=== PATIENT | female | born 2000 | race African-American/Black ===

== ENCOUNTER 2022-11-27 15:20 | Emergency (ER) | payer MEDICAID ==
[~2022-11-27] VITALS: Ht 167.6 cm; Wt 54.0 kg
[2022-11-27 15:22] VITALS: BP 123/90
== END 2022-11-27 16:45 | disposition home or self-care (01) ==
LOC: ER 15:20
DX: F10.129 Alcohol abuse with intoxication, unspecified (principal); Y90.9 Presence of alcohol in blood, level not specified; Z63.4 Disappearance and death of family member; Z71.41 Alcohol abuse counseling and surveillance of alcoholic; R03.0 Elevated blood-pressure reading, without diagnosis of hypertension
CPT/HCPCS: 99283

== ENCOUNTER 2023-09-25 21:04 | Emergency (ER) | payer MEDICAID ==
[~2023-09-25] VITALS: Ht 160 cm; Wt 60.0 kg
[2023-09-25 21:12] VITALS: BP 128/93; PULSE 91; RESP 14; TEMP 97.4; O2SAT 97
[2023-09-25] MEDS ORDERED: ONDANSETRON 4MG ODT PO STA (21:15)
[2023-09-25 22:08] LABS: BASOPHILS % 0.7 % (0.0-2.0); DIFFERENTIAL COMMENT 0; EOSINOPHILS % 0.5 % (0.0-5.0); HEMOGLOBIN. 10.7 g/dL (12.0-16.0); LYMPHOCYTES % 65.2 % (20.0-50.0); MEAN CORPUSCULAR HGB CONC 33.4 g/dL (31.0-37.0); MEAN CORPUSCULAR VOLUME 101.7 fL (81.0-99.0); MEAN PLATELET VOLUME 7.6 fl (7.4-10.4); MONOCYTES % 6.4 % (2.0-8.0); NEUTROPHILS % 27.2 % (40.0-76.0); PLATELET 241 x1000/uL (130-400); RED BLOOD CELL COUNT 3.15 mill/uL (4.2-5.4); RED CELL DISTRIBUTION WIDTH 13.3 % (11.6-14.6); WHITE BLOOD COUNT 5.9 x1000/uL (4.5-11.0)
[2023-09-25 22:32] LABS: ACETAMINOPHEN < 2 ug/mL (10-30); ALANINE AMINOTRANSFERASE 101 IU/L (10-49); ALBUMIN 3.4 g/dL (3.2-4.8); ASPARTATE AMINOTRANSFERASE 153 IU/L (<34); BILIRUBIN TOTAL 0.3 mg/dL (0.1-1.0); CALCIUM 8.4 mg/dL (8.7-10.4); CARBON DIOXIDE 31 mEq/L (21-32); CHLORIDE 107 mEq/L (98-107); CREATININE 0.6 mg/dL (0.6-1.0); ETHANOL BLOOD 354 mg/dL (<10); GLUCOSE 82 mg/dL (70-105); PROTEIN TOTAL 6.3 g/dL (6.0-8.3); SODIUM 145 mEq/L (136-145); THYROID STIMULATING HORMONE 2.02 uIU/mL (0.55-4.78); UREA NITROGEN BLOOD 6 mg/dL (9-23)
[2023-09-25] MEDS ORDERED: POTASSIUM CHLORIDE 20MEQ TABLET SR PO NR (23:00)
== END 2023-09-25 23:30 | disposition home or self-care (01) ==
LOC: ER 21:04
DX: R11.2 Nausea with vomiting, unspecified (principal); F10.129 Alcohol abuse with intoxication, unspecified; Y90.8 Blood alcohol level of 240 mg/100 ml or more
CPT/HCPCS: 80053; 80307; 80329; 80320; 84443; 85025; 36415; 99283; Q0162; G0480

== ENCOUNTER 2023-11-03 14:34 | Emergency (ER) | payer MEDICAID ==
[~2023-11-03] VITALS: Ht 167.6 cm; Wt 70.0 kg
[2023-11-03 14:39] VITALS: O2SAT 97
[2023-11-03] MEDS ORDERED: LIDOCAINE HCL/EPINEPHRINE 1%-EPI 1:100,000 20 ML VIAL INFIL ONE (15:30)
[2023-11-03] MEDS ORDERED: TETANUS, DIPHTHERIA, PERTUSSIS VAC/PF 0.5ML (>10YR OLD) IM ONE (15:30)
[2023-11-03] MEDS ORDERED: LEVETIRACETAM 500MG/5ML CUP PO ONE (15:30)
[2023-11-03 15:38] LABS: BASOPHILS % 0.3 % (0.0-2.0); DIFFERENTIAL COMMENT 0; HEMATOCRIT. 38.6 % (36.0-48.0); HEMOGLOBIN. 12.9 g/dL (12.0-16.0); LYMPHOCYTES % 55.1 % (20.0-50.0); MEAN CORPUSCULAR HEMOGLOBIN 34.2 pg (28.0-32.0); MEAN CORPUSCULAR HGB CONC 33.5 g/dL (31.0-37.0); MEAN CORPUSCULAR VOLUME 102.2 fL (81.0-99.0); MEAN PLATELET VOLUME 6.7 fl (7.4-10.4); MONOCYTES % 3.2 % (2.0-8.0); NEUTROPHILS % 41.4 % (40.0-76.0); PLATELET 258 x1000/uL (130-400); RED BLOOD CELL COUNT 3.78 mill/uL (4.2-5.4); RED CELL DISTRIBUTION WIDTH 12.7 % (11.6-14.6); WHITE BLOOD COUNT 8.2 x1000/uL (4.5-11.0)
[2023-11-03 15:52] LABS: ALANINE AMINOTRANSFERASE 20 IU/L (10-49); ALBUMIN 4.4 g/dL (3.2-4.8); ASPARTATE AMINOTRANSFERASE 50 IU/L (<34); BILIRUBIN TOTAL 0.4 mg/dL (0.1-1.0); CALCIUM 8.8 mg/dL (8.7-10.4); CARBON DIOXIDE 25 mEq/L (21-32); CHLORIDE 104 mEq/L (98-107); CREATININE 0.5 mg/dL (0.6-1.0); GLUCOSE 89 mg/dL (70-105); POTASSIUM 3.4 mEq/L (3.5-5.1); SODIUM 143 mEq/L (136-145); UREA NITROGEN BLOOD 6 mg/dL (9-23)
[2023-11-03 15:56] LABS: HCG SCREEN NEGATIVE
[2023-11-03] MEDS ORDERED: KEPP500 MT (17:40)
[2023-11-03 19:00] VITALS: BP 111/68; PULSE 98; RESP 16; TEMP 97.9
== END 2023-11-03 19:40 | disposition home or self-care (01) ==
LOC: ER 14:34
DX: S01.511A Laceration without foreign body of lip, initial encounter (principal); R56.9 Unspecified convulsions; F32.9 Major depressive disorder, single episode, unspecified; F10.229 Alcohol dependence with intoxication, unspecified; X58.XXXA Exposure to other specified factors, initial encounter; Y93.89 Activity, other specified; Y92.89 Other specified places as the place of occurrence of the external cause; Y99.8 Other external cause status
CPT/HCPCS: 80053; 84703; 85025; 36415; 90715; 93005; 90471; 99284; J3490; Z7610

== ENCOUNTER 2023-11-10 13:21 | Emergency (ER) | payer MEDICAID ==
[~2023-11-10] VITALS: Ht 162.6 cm; Wt 69.0 kg
[~2023-11-10 13:21] MED LIST: KEPP500 MT
[2023-11-10 13:27] VITALS: BP 138/95; PULSE 103; RESP 16; TEMP 98.1; O2SAT 95
[2023-11-10] MEDS ORDERED: LEVETIRACETAM 500MG PREMIX 100 ML IV ONE (14:30)
== END 2023-11-10 14:58 | disposition left against medical advice (07) ==
LOC: ER 14:53
DX: R56.9 Unspecified convulsions (principal); F32.A Depression, unspecified; I10 Essential (primary) hypertension; F10.20 Alcohol dependence, uncomplicated; Y90.9 Presence of alcohol in blood, level not specified
CPT/HCPCS: 99283

== ENCOUNTER 2024-04-06 02:37 | Emergency (ER) | payer MEDICAID ==
[~2024-04-06] VITALS: Ht 180.3 cm; Wt 65.0 kg
[~2024-04-06 02:37] MED LIST changes: +CHLO5CAP3 MT; +FOLI-43 MT; +MULT-230 MT; +THIA100T72 PO
[2024-04-06] MEDS ORDERED: ONDANSETRON HCL 4MG/2ML INJ IV STA (02:46)
[2024-04-06] MEDS ORDERED: MAGNESIUM/ALUMINUM HYDROXIDE/SIMETHICONE 30ML UDC PO STA (02:46)
[2024-04-06] MEDS ORDERED: PANTOPRAZOLE SODIUM 40 MG/VIAL IV STA (02:46)
[2024-04-06 02:54] VITALS: BP 118/88; PULSE 100; RESP 19; TEMP 98.4; O2SAT 99
[2024-04-06] MEDS ORDERED: SODIUM CHLORIDE 0.9% 1,000 ML IV ONE (03:00)
[2024-04-06 03:11] LABS: BASOPHILS % 1.4 % (0.0-2.0); DIFFERENTIAL COMMENT 0; EOSINOPHILS % 0.2 % (0.0-5.0); HEMATOCRIT. 41.4 % (36.0-48.0); HEMOGLOBIN. 13.9 g/dL (12.0-16.0); LYMPHOCYTES % 55.7 % (20.0-50.0); MEAN CORPUSCULAR HEMOGLOBIN 34.1 pg (28.0-32.0); MEAN CORPUSCULAR HGB CONC 33.6 g/dL (31.0-37.0); MEAN CORPUSCULAR VOLUME 101.4 fL (81.0-99.0); MEAN PLATELET VOLUME 9.4 fl (7.4-10.4); NEUTROPHILS % 33.7 % (40.0-76.0); PLATELET 135 x1000/uL (130-400); RED BLOOD CELL COUNT 4.08 mill/uL (4.2-5.4); RED CELL DISTRIBUTION WIDTH 14.3 % (11.6-14.6); WHITE BLOOD COUNT 5.7 x1000/uL (4.5-11.0)
[2024-04-06 03:15] LABS: CARBON DIOXIDE 28 mEq/L (21-32); CHLORIDE 98 mEq/L (98-107); POTASSIUM 3.1 mEq/L (3.5-5.1); SODIUM 139 mEq/L (136-145)
[2024-04-06 03:16] LABS: CALCIUM 8.9 mg/dL (8.7-10.4)
[2024-04-06 03:20] LABS: CREATININE 0.8 mg/dL (0.6-1.0)
[2024-04-06 03:21] LABS: ETHANOL BLOOD 249 mg/dL (<10); GLUCOSE 97 mg/dL (70-105); UREA NITROGEN BLOOD 7 mg/dL (9-23)
[2024-04-06 03:22] LABS: ALANINE AMINOTRANSFERASE 130 IU/L (10-49); ALBUMIN 3.9 g/dL (3.2-4.8); ASPARTATE AMINOTRANSFERASE 441 IU/L (<34)
[2024-04-06 03:23] LABS: BILIRUBIN DIRECT 1.1 mg/dL (<=3.0); BILIRUBIN TOTAL 1.8 mg/dL (0.1-1.0); PROTEIN TOTAL 7.5 g/dL (6.0-8.3)
[2024-04-06] MEDS ORDERED: MAGNESIUM/ALUMINUM HYDROXIDE/SIMETHICONE 30ML UDC PO NR (03:30)
[2024-04-06] MEDS ORDERED: ONDANSETRON HCL 4MG/2ML INJ IV NR (03:30)
[2024-04-06 03:43] LABS: HCG SCREEN NEGATIVE
[2024-04-06 03:44] LABS: INR 1.2; PROTHROMBIN TIME 12.8 sec (9.6-11.0)
[2024-04-06 03:58] LABS: LACTIC ACID 3.9 mmol/L (0.4-2.0); TROPONIN I HIGH SENSITIVITY < 4 ng/L (3.0-34)
== END 2024-04-06 05:50 | disposition left against medical advice (07) ==
LOC: ER 02:37
DX: F10.229 Alcohol dependence with intoxication, unspecified (principal); F17.200 Nicotine dependence, unspecified, uncomplicated; I10 Essential (primary) hypertension; Z00.00 Encounter for general adult medical examination without abnormal findings; Z86.59 Personal history of other mental and behavioral disorders; Y90.8 Blood alcohol level of 240 mg/100 ml or more
CPT/HCPCS: 36415; 80048; 80076; 80320; 83605; 84484; 84703; 85025; 99283; G0480

== ENCOUNTER 2024-04-08 16:57 | Inpatient (IN) | payer MEDICAID ==
[~2024-04-08] VITALS: Ht 167.6 cm; Wt 61.2 kg
[2024-04-08 16:59] VITALS: O2SAT 99
[2024-04-08] MEDS: LEVETIRACETAM 1000MG PREMIX 100 ML IV ONE (17:29)
[2024-04-08 17:43] LABS: BASOPHILS % 0.6 % (0.0-2.0); DIFFERENTIAL COMMENT 0; EOSINOPHILS % 0.1 % (0.0-5.0); HEMATOCRIT. 41.3 % (36.0-48.0); HEMOGLOBIN. 13.7 g/dL (12.0-16.0); LYMPHOCYTES % 41.4 % (20.0-50.0); MEAN CORPUSCULAR HEMOGLOBIN 33.5 pg (28.0-32.0); MEAN CORPUSCULAR HGB CONC 33.2 g/dL (31.0-37.0); MEAN PLATELET VOLUME 10.5 fl (7.4-10.4); MONOCYTES % 8.6 % (2.0-8.0); NEUTROPHILS % 49.3 % (40.0-76.0); PLATELET 101 x1000/uL (130-400); RED BLOOD CELL COUNT 4.09 mill/uL (4.2-5.4); RED CELL DISTRIBUTION WIDTH 14.3 % (11.6-14.6); WHITE BLOOD COUNT 5.2 x1000/uL (4.5-11.0)
[2024-04-08 17:51] LABS: CARBON DIOXIDE 34 mEq/L (21-32); CHLORIDE 86 mEq/L (98-107); SODIUM 132 mEq/L (136-145)
[2024-04-08 17:52] LABS: CALCIUM 9.2 mg/dL (8.7-10.4)
[2024-04-08] MEDS: CHLORDIAZEPOXIDE 25MG CAPSULE PO ONE (17:53)
[2024-04-08 17:55] LABS: HCG SCREEN NEGATIVE
[2024-04-08 17:57] LABS: ETHANOL BLOOD 30 mg/dL (<10); GLUCOSE 91 mg/dL (70-105); UREA NITROGEN BLOOD 9 mg/dL (9-23)
[2024-04-08 17:58] LABS: ALANINE AMINOTRANSFERASE 91 IU/L (10-49); ALBUMIN 3.7 g/dL (3.2-4.8); ASPARTATE AMINOTRANSFERASE 219 IU/L (<34)
[2024-04-08 17:59] LABS: BILIRUBIN DIRECT 1.3 mg/dL (<=3.0); BILIRUBIN TOTAL 1.8 mg/dL (0.1-1.0); PHOSPHORUS 2.2 mg/dL (2.5-4.9); PROTEIN TOTAL 7.1 g/dL (6.0-8.3)
[2024-04-08 18:02] LABS: POTASSIUM 2.7 mEq/L (3.5-5.1)
[2024-04-08 18:03] LABS: CREATININE 1.4 mg/dL (0.6-1.0)
[2024-04-08] MEDS: MAGNESIUM 2 G PREMIX 50 ML IV ONE (18:23)
[2024-04-08] MEDS: SODIUM CHLORIDE 0.9% 1,000 ML IV ONE (18:23)
[2024-04-08] MEDS: KCL 10MEQ/50ML PREMIX 50 ML IV SCH (18:37)
[2024-04-08] MEDS ORDERED: ACETAMINOPHEN 325MG TABLET PO PRN ×2 (19:15)
[2024-04-08] MEDS ORDERED: CLONIDINE 0.1MG TABLET PO PRN (19:15)
[2024-04-08] MEDS ORDERED: IPRATROPIUM/ALBUTEROL 0.5-3(2.5)MG/3ML NEB HHN PRN (19:15)
[2024-04-08] MEDS ORDERED: MAGNESIUM/ALUMINUM HYDROXIDE/SIMETHICONE 30ML UDC PO PRN (19:15)
[2024-04-08] MEDS ORDERED: LORAZEPAM 2MG/ML INJ IV PRN ×2 (19:15→19:30)
[2024-04-08] MEDS ORDERED: GUAIFENESIN 200MG/10ML SUGAR FREE UDC PO PRN (19:15)
[2024-04-08] MEDS ORDERED: HYDROCODONE/ACETAMINOPHEN 5/325MG TABLET PO PRN (19:15)
[2024-04-08] MEDS ORDERED: ONDANSETRON HCL 4MG/2ML INJ IV PRN (19:15)
[2024-04-08] MEDS ORDERED: DOCUSATE SODIUM 100MG CAPSULE PO PRN (19:15)
[2024-04-08] MEDS: THIAMINE HCL 100MG TABLET PO SCH (21:40)
[2024-04-08] MEDS: FOLIC ACID 1MG TABLET PO SCH (21:40)
[2024-04-08] MEDS: ENOXAPARIN 40MG/0.4ML SYR SUBCUT SCH (21:45)
[2024-04-08 23:00] VITALS: BP 104/78; PULSE 18; RESP 18; TEMP 98.1
[2024-04-08] MEDS: LORAZEPAM 2MG/ML INJ IV PRN (23:24)
[2024-04-09] MEDS: POTASSIUM PHOSPHATE 20 MMOL in DEXT 5% WATER 243.3333 ML IV NR (03:41)
[2024-04-09] MEDS: MVI, ADULT NO.1 10 ML, FOLIC ACID 1 MG, THIAMINE HCL 100 MG in SODIUM CHLORIDE 0.9% 1,0... IV SCH (03:42)
[2024-04-09 04:46] LABS: BASOPHILS % 0.6 % (0.0-2.0); DIFFERENTIAL COMMENT 0; EOSINOPHILS % 0.4 % (0.0-5.0); HEMATOCRIT. 35.1 % (36.0-48.0); HEMOGLOBIN. 11.8 g/dL (12.0-16.0); LYMPHOCYTES % 49.5 % (20.0-50.0); MEAN CORPUSCULAR HGB CONC 33.7 g/dL (31.0-37.0); MEAN CORPUSCULAR VOLUME 101.1 fL (81.0-99.0); MEAN PLATELET VOLUME 10.3 fl (7.4-10.4); MONOCYTES % 8.6 % (2.0-8.0); NEUTROPHILS % 40.9 % (40.0-76.0); PLATELET 69 x1000/uL (130-400); RED BLOOD CELL COUNT 3.47 mill/uL (4.2-5.4); RED CELL DISTRIBUTION WIDTH 14.2 % (11.6-14.6); WHITE BLOOD COUNT 5.1 x1000/uL (4.5-11.0)
[2024-04-09 04:52] LABS: CHLORIDE 92 mEq/L (98-107); SODIUM 133 mEq/L (136-145)
[2024-04-09 04:53] LABS: CALCIUM 8.3 mg/dL (8.7-10.4); CARBON DIOXIDE 36 mEq/L (21-32)
[2024-04-09 04:57] LABS: CREATININE 1.4 mg/dL (0.6-1.0)
[2024-04-09 04:58] LABS: GLUCOSE 72 mg/dL (70-105)
[2024-04-09 04:59] LABS: ALANINE AMINOTRANSFERASE 82 IU/L (10-49); ALBUMIN 3.1 g/dL (3.2-4.8); ASPARTATE AMINOTRANSFERASE 270 IU/L (<34); LDL CHOLESTEROL 82 mg/dL (5-100); TRIGLYCERIDE 132 mg/dL (0-150); UREA NITROGEN BLOOD 9 mg/dL (9-23)
[2024-04-09 05:00] LABS: CHOLESTEROL 159 mg/dL (<200); HDL CHOLESTEROL 42 mg/dL (>65); PHOSPHORUS 2.8 mg/dL (2.5-4.9)
[2024-04-09 05:01] LABS: BILIRUBIN TOTAL 2.3 mg/dL (0.1-1.0)
[2024-04-09 05:02] LABS: CREATINE KINASE 31 IU/L (34-145); T4 FREE 0.95 ng/dL (0.89-1.76); THYROID STIMULATING HORMONE 1.74 uIU/mL (0.55-4.78)
[2024-04-09 05:11] LABS: TROPONIN I HIGH SENSITIVITY < 4 ng/L (3.0-34)
[2024-04-09 05:30] LABS: POTASSIUM 2.7 mEq/L (3.5-5.1)
[2024-04-09 07:47] VITALS: BP 107/71; PULSE 85; RESP 18; TEMP 98
[2024-04-09] MEDS: PANTOPRAZOLE SODIUM 40 MG/VIAL IV SCH (08:40)
[2024-04-09] MEDS ORDERED: LEVETIRACETAM 500MG PREMIX 100 ML IV SCH (09:00)
[2024-04-09 11:28] LABS: CREATINE KINASE 28 IU/L (34-145)
[2024-04-09 11:32] LABS: TROPONIN I HIGH SENSITIVITY < 4 ng/L (3.0-34)
[2024-04-09] MEDS: POTASSIUM CHLORIDE 20MEQ TABLET SR PO SCH (11:45)
[2024-04-09] MEDS: MAGNESIUM OXIDE 400MG TABLET PO SCH (11:45)
[2024-04-09] MEDS: LEVETIRACETAM 500MG PREMIX 100 ML IV SCH (11:45)
[2024-04-09 12:00] VITALS: BP 105/68; PULSE 89; RESP 20; TEMP 98.1
== END 2024-04-09 15:54 | disposition left against medical advice (07) | DRG 53 ==
LOC: ER 16:57 → 7WST 18:53 → EDBEDREQTM 18:54 → EDBEDREQ 18:54
PROVIDERS: ADMIT Hospitalist; ATTEND Hospitalist
DX: G40.909 Epilepsy, unspecified, not intractable, without status epilepticus (principal); N17.0 Acute kidney failure with tubular necrosis; E83.39 Other disorders of phosphorus metabolism; D69.6 Thrombocytopenia, unspecified; E86.0 Dehydration; E83.42 Hypomagnesemia; E87.6 Hypokalemia; F10.239 Alcohol dependence with withdrawal, unspecified; Y90.1 Blood alcohol level of 20-39 mg/100 ml; I10 Essential (primary) hypertension; D75.89 Other specified diseases of blood and blood-forming organs; Z53.29 Procedure and treatment not carried out because of patient's decision for other reasons; R74.01 Elevation of levels of liver transaminase levels; Z91.148 Patient's other noncompliance with medication regimen for other reason; Z91.199 Patient's noncompliance with other medical treatment and regimen due to unspecified reason
CPT/HCPCS: 36415; 76700; 80048; 80053; 80061; 80076; 80320; 82550; 83735; 84100; 84439; 84443; 84484; 84703; 85025; 93970; 99291; C9113; J1650; J1953; J2060; J3411; J3475; J3480; J3490; J7030; J7060; G0480

== ENCOUNTER 2024-06-09 18:15 | Emergency (ER) | payer MEDICAID ==
[~2024-06-09] VITALS: Ht 172.7 cm; Wt 66.0 kg
[~2024-06-09 18:15] MED LIST changes: -CHLO5CAP3 MT; -MULT-230 MT
[2024-06-09 18:17] VITALS: O2SAT 97
[2024-06-09 18:30] VITALS: TEMP 37.00296
[2024-06-09 19:02] LABS: ADD RBC MORPHOLOGY YES; BASOPHILS % 0.6 % (0.0-2.0); DIFFERENTIAL COMMENT 1; EOSINOPHILS % 0.8 % (0.0-5.0); HEMATOCRIT. 27.1 % (36.0-48.0); LYMPHOCYTES % 46.9 % (20.0-50.0); MEAN CORPUSCULAR HEMOGLOBIN 37.1 pg (28.0-32.0); MEAN CORPUSCULAR HGB CONC 33.3 g/dL (31.0-37.0); MEAN CORPUSCULAR VOLUME 111.5 fL (81.0-99.0); MEAN PLATELET VOLUME 8.1 fl (7.4-10.4); MONOCYTES % 12.6 % (2.0-8.0); NEUTROPHILS % 39.1 % (40.0-76.0); PLATELET 181 x1000/uL (130-400); RED BLOOD CELL COUNT 2.43 mill/uL (4.2-5.4); RED CELL DISTRIBUTION WIDTH 13.9 % (11.6-14.6); WHITE BLOOD COUNT 8.9 x1000/uL (4.5-11.0)
[2024-06-09 19:06] LABS: CHLORIDE 108 mEq/L (98-107); POTASSIUM 3.7 mEq/L (3.5-5.1); SODIUM 141 mEq/L (136-145)
[2024-06-09 19:07] LABS: CARBON DIOXIDE 25 mEq/L (21-32)
[2024-06-09 19:08] LABS: CALCIUM 8.2 mg/dL (8.7-10.4)
[2024-06-09 19:12] LABS: CREATININE 0.8 mg/dL (0.6-1.0); GLUCOSE 101 mg/dL (70-105)
[2024-06-09 19:15] LABS: PHOSPHORUS 3.5 mg/dL (2.5-4.9); PLATELET ESTIMATE NORMAL
[2024-06-09 19:18] LABS: UREA NITROGEN BLOOD < 5 mg/dL (9-23)
[2024-06-09 19:26] LABS: ETHANOL BLOOD 403 mg/dL (<10)
[2024-06-09] MEDS: CHLORDIAZEPOXIDE 25MG CAPSULE PO ONE (19:50)
[2024-06-09] MEDS: SODIUM CHLORIDE 0.9% 1,000 ML IV ONE (19:50)
[2024-06-09] MEDS: LEVETIRACETAM 500MG PREMIX 100 ML IV ONE (20:15)
[2024-06-09 22:25] VITALS: BP 118/63; PULSE 82; RESP 14; O2SAT 100
== END 2024-06-09 22:27 | disposition home or self-care (01) ==
LOC: ER 18:15
DX: F10.129 Alcohol abuse with intoxication, unspecified (principal); G40.909 Epilepsy, unspecified, not intractable, without status epilepticus; F41.9 Anxiety disorder, unspecified; F32.A Depression, unspecified; I10 Essential (primary) hypertension; Y90.8 Blood alcohol level of 240 mg/100 ml or more
CPT/HCPCS: 80048; 80320; 83735; 84100; 85025; 36415; 99283; J7030; G0480

== ENCOUNTER 2024-06-18 18:27 | Emergency (ER) | payer MEDICAID ==
[~2024-06-18] VITALS: Ht 167.6 cm; Wt 64.0 kg
[2024-06-18 18:45] VITALS: BP 123/88; PULSE 104; RESP 18; TEMP 98.7; O2SAT 98
[2024-06-18] MEDS ORDERED: LEVETIRACETAM 1000MG PREMIX 100 ML IV STA (20:16)
[2024-06-18 20:34] LABS: BASOPHILS % 0.6 % (0.0-2.0); EOSINOPHILS % 0.8 % (0.0-5.0); HEMATOCRIT. 28.1 % (36.0-48.0); HEMOGLOBIN. 9.5 g/dL (12.0-16.0); LYMPHOCYTES % 36.1 % (20.0-50.0); MEAN CORPUSCULAR HEMOGLOBIN 37.4 pg (28.0-32.0); MEAN CORPUSCULAR VOLUME 110.2 fL (81.0-99.0); MEAN PLATELET VOLUME 7.9 fl (7.4-10.4); MONOCYTES % 5.9 % (2.0-8.0); NEUTROPHILS % 56.6 % (40.0-76.0); PLATELET 147 x1000/uL (130-400); RED BLOOD CELL COUNT 2.55 mill/uL (4.2-5.4); RED CELL DISTRIBUTION WIDTH 13.8 % (11.6-14.6)
[2024-06-18 20:36] LABS: DIFFERENTIAL COMMENT 1
[2024-06-18 20:39] LABS: CHLORIDE 111 mEq/L (98-107); POTASSIUM 3.2 mEq/L (3.5-5.1); SODIUM 144 mEq/L (136-145)
[2024-06-18 20:40] LABS: CARBON DIOXIDE 26 mEq/L (21-32)
[2024-06-18 20:41] LABS: CALCIUM 8.2 mg/dL (8.7-10.4)
[2024-06-18 20:45] LABS: GLUCOSE 79 mg/dL (70-105)
[2024-06-18 20:58] LABS: CREATININE 0.4 mg/dL (0.6-1.0); UREA NITROGEN BLOOD < 5 mg/dL (9-23)
[2024-06-18 20:59] LABS: ETHANOL BLOOD 405 mg/dL (<10)
[2024-06-18] MEDS: LEVETIRACETAM 1000MG PREMIX 100 ML IV NR (22:35)
[2024-06-18] MEDS ORDERED: POTASSIUM CHLORIDE 20MEQ TABLET SR PO ONE (23:45)
== END 2024-06-19 05:56 | disposition home or self-care (01) ==
LOC: ER 18:27
DX: R56.9 Unspecified convulsions (principal); F10.129 Alcohol abuse with intoxication, unspecified; I10 Essential (primary) hypertension; F41.9 Anxiety disorder, unspecified; F32.A Depression, unspecified; Z91.199 Patient's noncompliance with other medical treatment and regimen due to unspecified reason; Y90.8 Blood alcohol level of 240 mg/100 ml or more
CPT/HCPCS: 80048; 80320; 85025; 36415; 96374; 99283; J1953; G0480

== ENCOUNTER 2024-07-25 23:16 | Emergency (ER) | payer MEDICAID ==
[~2024-07-25] VITALS: Ht 162.6 cm; Wt 62.0 kg
[2024-07-25 23:17] VITALS: O2SAT 96
[2024-07-25] MEDS ORDERED: LEVETIRACETAM 500MG PREMIX 100 ML IV ONE (23:45)
[2024-07-25 23:49] LABS: DIFFERENTIAL COMMENT 0; EOSINOPHILS % 0.7 % (0.0-5.0); HEMATOCRIT. 30.8 % (36.0-48.0); HEMOGLOBIN. 10.4 g/dL (12.0-16.0); LYMPHOCYTES % 40.7 % (20.0-50.0); MEAN CORPUSCULAR HGB CONC 33.7 g/dL (31.0-37.0); MEAN CORPUSCULAR VOLUME 103.6 fL (81.0-99.0); MEAN PLATELET VOLUME 7.3 fl (7.4-10.4); NEUTROPHILS % 50.6 % (40.0-76.0); PLATELET 223 x1000/uL (130-400); RED BLOOD CELL COUNT 2.97 mill/uL (4.2-5.4); RED CELL DISTRIBUTION WIDTH 13.3 % (11.6-14.6); WHITE BLOOD COUNT 9.2 x1000/uL (4.5-11.0)
[2024-07-25 23:52] LABS: CARBON DIOXIDE 27 mEq/L (21-32); CHLORIDE 104 mEq/L (98-107); POTASSIUM 3.7 mEq/L (3.5-5.1); SODIUM 139 mEq/L (136-145)
[2024-07-25 23:53] LABS: CALCIUM 9.2 mg/dL (8.7-10.4)
[2024-07-25 23:57] LABS: *AMPHETAMINES SCREEN URINE NEGATIVE (NEGATIVE); *BARBITURATES SCREEN URINE NEGATIVE (NEGATIVE); *BENZODIAZEPINES SCREEN URINE NEGATIVE (NEGATIVE); *COCAINE SCREEN URINE NEGATIVE (NEGATIVE); CREATININE 0.6 mg/dL (0.6-1.0)
[2024-07-25 23:58] LABS: CANNABINOID URINE SCREEN PRESUMPTIVE POSITIVE (NEGATIVE); ECSTASY MDMA SCREEN URINE NEGATIVE (NEGATIVE); ETHANOL BLOOD 230 mg/dL (<10); GLUCOSE 84 mg/dL (70-105); METHADONE URINE SCREEN NEGATIVE (NEGATIVE); OPIATES URINE SCREEN NEGATIVE (NEGATIVE); PHENCYCLIDINE URINE SCREEN NEGATIVE (NEGATIVE)
[2024-07-25 23:59] LABS: ALANINE AMINOTRANSFERASE 75 IU/L (10-49); ASPARTATE AMINOTRANSFERASE 260 IU/L (<34)
[2024-07-26] LABS: BILIRUBIN DIRECT 0.6 mg/dL (<=3.0); PROTEIN TOTAL 7.8 g/dL (6.0-8.3)
[2024-07-26 00:16] LABS: UREA NITROGEN BLOOD < 5 mg/dL (9-23)
[2024-07-26] MEDS: SODIUM CHLORIDE 0.9% 1,000 ML IV ONE (00:50)
[2024-07-26] MEDS: LEVETIRACETAM 500MG PREMIX 100 ML IV NR (00:51)
[2024-07-26 01:43] LABS: HCG SCREEN NEGATIVE
[2024-07-26 02:09] VITALS: BP 122/72; PULSE 80; RESP 16; TEMP 36.94740; O2SAT 99
== END 2024-07-26 02:30 | disposition home or self-care (01) ==
LOC: ER 23:16
DX: G40.909 Epilepsy, unspecified, not intractable, without status epilepticus (principal); I10 Essential (primary) hypertension; F10.229 Alcohol dependence with intoxication, unspecified; F41.9 Anxiety disorder, unspecified; F32.9 Major depressive disorder, single episode, unspecified; F17.210 Nicotine dependence, cigarettes, uncomplicated; Y90.7 Blood alcohol level of 200-239 mg/100 ml
CPT/HCPCS: 80076; 80305; 80048; 81025; 80320; 82962; 84703; 83735; 85025; 36415; 71045; 93005; 99285; 96365; J7030; Z7610 ×2; J1953; G0480

== ENCOUNTER 2024-12-01 07:45 | Emergency (ER) | payer MEDICAID ==
[~2024-12-01] VITALS: Ht 172.7 cm; Wt 60.0 kg
[2024-12-01 07:56] VITALS: O2SAT 99
[2024-12-01 08:40] LABS: CLARITY URINE TURBID (CLEAR); COLOR URINE DARK YELLOW (YELLOW); GLUCOSE URINE NEGATIVE (NEGATIVE); KETONES URINE 1+ (NEGATIVE); LEUKOCYTE ESTERASE URINE TRACE (NEGATIVE); NITRITE URINE POSITIVE (NEGATIVE); OCCULT BLOOD URINE NEGATIVE (NEGATIVE); PH URINE 5.5 (4.5-8.0); PROTEIN URINE 2+ (NEGATIVE); SPECIFIC GRAVITY URINE 1.042 (1.005-1.030)
[2024-12-01 09:00] LABS: BASOPHILS % 0.5 % (0.0-2.0); HEMATOCRIT. 37.3 % (36.0-48.0); HEMOGLOBIN. 12.3 g/dL (12.0-16.0); LYMPHOCYTES % 18.9 % (20.0-50.0); MEAN CORPUSCULAR HEMOGLOBIN 30.4 pg (28.0-32.0); MEAN CORPUSCULAR HGB CONC 32.9 g/dL (31.0-37.0); MEAN CORPUSCULAR VOLUME 92.6 fL (81.0-99.0); MONOCYTES % 5.9 % (2.0-8.0); NEUTROPHILS % 74.7 % (40.0-76.0); PLATELET 201 x1000/uL (130-400); RED BLOOD CELL COUNT 4.03 mill/uL (4.2-5.4); RED CELL DISTRIBUTION WIDTH 14.5 % (11.6-14.6); WHITE BLOOD COUNT 8.1 x1000/uL (4.5-11.0)
[2024-12-01 09:07] LABS: CHLORIDE 102 mEq/L (98-107); POTASSIUM 3.7 mEq/L (3.5-5.1); SODIUM 139 mEq/L (136-145)
[2024-12-01 09:08] LABS: CARBON DIOXIDE 24 mEq/L (21-32)
[2024-12-01 09:09] LABS: CALCIUM 9.8 mg/dL (8.7-10.4)
[2024-12-01 09:13] LABS: CREATININE 0.7 mg/dL (0.6-1.0); GLUCOSE 71 mg/dL (70-105)
[2024-12-01 09:13] LABS: *AMPHETAMINES SCREEN URINE PRESUMPTIVE POSITIVE (NEGATIVE)
[2024-12-01 09:14] LABS: ETHANOL BLOOD 198 mg/dL (<10); UREA NITROGEN BLOOD 8 mg/dL (9-23)
[2024-12-01 09:14] LABS: *BARBITURATES SCREEN URINE NEGATIVE (NEGATIVE); *BENZODIAZEPINES SCREEN URINE NEGATIVE (NEGATIVE); *COCAINE SCREEN URINE PRESUMPTIVE POSITIVE (NEGATIVE); CANNABINOID URINE SCREEN PRESUMPTIVE POSITIVE (NEGATIVE); ECSTASY MDMA SCREEN URINE CONF.TEST INDICATED (NEGATIVE); METHADONE URINE SCREEN NEGATIVE (NEGATIVE); OPIATES URINE SCREEN NEGATIVE (NEGATIVE); PHENCYCLIDINE URINE SCREEN NEGATIVE (NEGATIVE)
[2024-12-01 09:18] LABS: MUCUS URINE 2+ /lpf (< = 2+); SQUAMOUS EPITHELIAL CELL URINE 3+ /lpf (RARE/1+)
[2024-12-01 09:19] LABS: BACTERIA URINE 3+
[2024-12-01 09:20] LABS: RBC URINE 0-2 /hpf (0-2)
[2024-12-01 09:22] LABS: WBC URINE 0-2 /hpf (0-2)
[2024-12-01 09:23] LABS: HCG SCREEN NEGATIVE
[2024-12-01] MEDS: LORAZEPAM 1MG TABLET PO ONE (14:28)
[2024-12-01] MEDS: OLANZAPINE 5MG TABLET PO SCH (14:28)
[2024-12-01 17:19] VITALS: BP 131/80; PULSE 120; RESP 15; TEMP 36.7; O2SAT 100
== END 2024-12-01 17:55 ==
LOC: ER 07:49
DX: R45.850 Homicidal ideations (principal); F29 Unspecified psychosis not due to a substance or known physiological condition; I10 Essential (primary) hypertension; F10.90 Alcohol use, unspecified, uncomplicated; Y90.9 Presence of alcohol in blood, level not specified; Z20.822 Contact with and (suspected) exposure to COVID-19; Z79.899 Other long term (current) drug therapy
CPT/HCPCS: 80305; 80048; 81003; 80320; 84703; 85025; 36415; 99285; 87426; Z7610 ×2; A4606; G0480

== ENCOUNTER 2025-01-04 17:20 | Emergency (ER) | payer MEDICAID ==
[~2025-01-04] VITALS: Ht 167.6 cm; Wt 74.0 kg
[2025-01-04 17:25] VITALS: O2SAT 99
[2025-01-04] MEDS: ONDANSETRON HCL 4MG/2ML INJ IV STA (17:51)
[2025-01-04] MEDS: MAGNESIUM/ALUMINUM HYDROXIDE/SIMETHICONE 30ML UDC PO STA (17:51)
[2025-01-04 19:43] LABS: HCG SCREEN NEGATIVE
[2025-01-04 20:01] VITALS: BP 143/101; PULSE 76; RESP 18; TEMP 36.7; O2SAT 99
[2025-01-04] MEDS ORDERED: FOLI-43 MT (20:01)
[2025-01-04] MEDS ORDERED: ONDA-239 PO (20:01)
[2025-01-04] MEDS ORDERED: THIA100T72 PO (20:01)
[2025-01-04] MEDS ORDERED: KEPP500 MT (20:01)
[2025-01-04 22:16] LABS: CLARITY URINE TURBID (CLEAR); COLOR URINE YELLOW (YELLOW); GLUCOSE URINE NEGATIVE (NEGATIVE); KETONES URINE NEGATIVE (NEGATIVE); LEUKOCYTE ESTERASE URINE 3+ (NEGATIVE); NITRITE URINE NEGATIVE (NEGATIVE); OCCULT BLOOD URINE TRACE (NEGATIVE); PH URINE 6.5 (4.5-8.0); PROTEIN URINE NEGATIVE (NEGATIVE); SPECIFIC GRAVITY URINE 1.003 (1.005-1.030); UROBILINOGEN URINE 0.2 E.U./dL (0.2-1.0)
[2025-01-04 22:36] LABS: SQUAMOUS EPITHELIAL CELL URINE 2+ /lpf (RARE/1+); WBC URINE TNTC /hpf (0-2)
[2025-01-04 22:37] LABS: BACTERIA URINE 3+
== END 2025-01-04 20:10 | disposition home or self-care (01) ==
LOC: ER 17:28
DX: F10.129 Alcohol abuse with intoxication, unspecified (principal); R41.82 Altered mental status, unspecified; Z79.899 Other long term (current) drug therapy; Y90.9 Presence of alcohol in blood, level not specified
CPT/HCPCS: 99285; 96374; 70450; 81003; 84703; 87086; J2405

== ENCOUNTER 2025-01-22 16:06 | Emergency (ER) | payer MEDICAID ==
[~2025-01-22] VITALS: Ht 170.2 cm; Wt 62.0 kg
[~2025-01-22 16:06] MED LIST changes: +ONDA-239 PO
[2025-01-22 16:08] VITALS: O2SAT 98
[2025-01-22] MEDS: SODIUM CHLORIDE 0.9% 1,000 ML IV ONE (16:32)
[2025-01-22 16:43] LABS: HEMATOCRIT 38.2 % (36.0-48.0); HEMOGLOBIN 12.1 g/dL (12.0-16.0); MEAN CORPUSCULAR HEMOGLOBIN 28.8 pg (28.0-32.0); MEAN CORPUSCULAR HGB CONC 31.6 g/dL (31.0-37.0); PLATELET 273 x1000/uL (130-400); WHITE BLOOD COUNT 9.7 x1000/uL (4.5-11.0)
[2025-01-22 16:52] LABS: CHLORIDE 105 mEq/L (98-107); POTASSIUM 3.6 mEq/L (3.5-5.1); SODIUM 140 mEq/L (136-145)
[2025-01-22 16:53] LABS: CALCIUM 9.9 mg/dL (8.7-10.4); CARBON DIOXIDE 19 mEq/L (21-32)
[2025-01-22 16:55] LABS: HCG SCREEN NEGATIVE; PARTIAL THROMBOPLASTIN TIME 23.8 sec (23.4-31.0); PROTHROMBIN TIME 10.8 sec (9.6-11.0)
[2025-01-22 16:58] LABS: CREATININE 0.7 mg/dL (0.6-1.0); GLUCOSE 84 mg/dL (70-105); UREA NITROGEN BLOOD < 5 mg/dL (9-23)
[2025-01-22 16:59] LABS: ALANINE AMINOTRANSFERASE 15 IU/L (10-49); ALBUMIN 4.5 g/dL (3.2-4.8); ASPARTATE AMINOTRANSFERASE 37 IU/L (<34)
[2025-01-22 17:00] LABS: BILIRUBIN TOTAL 0.8 mg/dL (0.1-1.0); PROTEIN TOTAL 8.1 g/dL (6.0-8.3)
[2025-01-22 19:00] VITALS: BP 135/78; PULSE 95; RESP 20; TEMP 37.6; O2SAT 98
[2025-01-22] MEDS ORDERED: IOHEXOL-300 100 ML BOTTLE ONE (23:12)
== END 2025-01-22 19:01 | disposition home or self-care (01) ==
LOC: ER 16:06
DX: S32.491A Other specified fracture of right acetabulum, initial encounter for closed fracture (principal); F10.129 Alcohol abuse with intoxication, unspecified; Y08.89XA Assault by other specified means, initial encounter; Y93.89 Activity, other specified; Y92.89 Other specified places as the place of occurrence of the external cause; Y99.8 Other external cause status; F17.200 Nicotine dependence, unspecified, uncomplicated; Y90.9 Presence of alcohol in blood, level not specified
CPT/HCPCS: 99291; 70450; 96360; 80053; 81025; 84703; 85027; 85610; 85730; 36415; 70486; 71260; 72125; 74177; Q9967